=== PATIENT | female | born 1980 | race Caucasian/White ===

== ENCOUNTER 2018-05-04 15:25 | Emergency (ER) | payer OTHER ==
[~2018-05-04] VITALS: Ht 177.8 cm; Wt 109.2 kg
[2018-05-04 16:32] LABS: HEMATOCRIT 43.6 % (36.0-46.0); HEMOGLOBIN 14.9 G/DL (11.9-15.5); MCHC 34.2 G/DL (30.0-36.0); MCV 84.8 FL (83-99); PLATELET COUNT 350 K/uL (156-360); RBC DIS.WIDTH-CV 12.5 % (11.8-14.6); RBC DIS.WIDTH-SD 38.6 % (39-53); RED BLOOD COUNT 5.14 M/uL (3.80-5.20); WHITE BLOOD COUNT 12.8 K/uL (4.1-10.2)
[2018-05-04 16:41] LABS: CHLORIDE 104 mEq/L (99-109); POTASSIUM 3.1 mEq/L (3.7-5.4); SODIUM 140 mEq/L (136-147)
[2018-05-04 16:42] LABS: GLUCOSE 84 mg/dL (70-99)
[2018-05-04 16:46] LABS: CREATININE 0.8 mg/dL (0.6-1.3); GFR ESTIMATE (CALCULATED) > 59 mL/min/
[2018-05-04 16:47] LABS: UREA NITROGEN (BUN) 7 mg/dL (9-23)
[2018-05-04 16:58] LABS: QUANTITATIVE HCG < 4.0 MIU/ML
[2018-05-04] MEDS ORDERED: MOTRIN IB200 MG PO (17:31)
[2018-05-04] MEDS ORDERED: AMOX TR-K CLV1 EAC4 PO (17:31)
[2018-05-04] MEDS ORDERED: LIDEX 0.05% CRE60 GM TP (17:32)
[2018-05-04] MEDS ORDERED: BENADRYL ALLERG25 MG PO (17:34)
[2018-05-04] MEDS ORDERED: MUCINEX FAST-M180 ML PO (17:36)
[2018-05-04] MEDS ORDERED: ATARAX,VISTARIL25 MG PO (19:41)
[2018-05-04 20:02] VITALS: BP 125/74
== END 2018-05-04 20:08 | disposition home or self-care (01) ==
LOC: EME 15:25
PROVIDERS: Physician Assistant Medical
DX: L55.1 Sunburn of second degree (principal)
CPT/HCPCS: 80048; 83605; 84702; 85027; 87040; 99281; 99285; J0696; J1100; J7030